=== PATIENT | female | born 1965 | race Caucasian/White ===

== ENCOUNTER 2017-03-16 09:00 | Emergency (ER) | payer OTHER ==
--- NOTE | ~2017-03-16 | CR58 ---
[facility] A Service of [facility] RADIOLOGY TEXT RESULTS PATIENT: KELLEY MERLOS LOCATION: SED : 65 UNIT #: [id number] AGE: [address]: Jeevan Larry DO SEX: F ORDER DR: [id number] [place] [id number] E MR#: [id number] Acc #: [id number] NAME: KELLEY MERLOS : 1965 SEX: F STUDY DATE/TIME: 03/16/2017 9:31 UNIT: SED ROOM: STUDY DESCRIPTION: CR Cervical Spine 2 or 3 Views Attending Physician: Jeevan Larry Ordering Physician: Jeevan Larry Primary Care Physician: Carlos Kang M.D. MEDICAL IMAGING REPORT This report is preliminary unless electronic signature is present. EXAM Cervical spine 3 views INDICATION Fall yesterday and neck pain. There are no comparison studies available. FINDINGS There is multilevel degenerative disc space narrowing within the mid cervical spine. There is degenerative appearing grade 1 retrolisthesis of C5 on C6. No prevertebral soft tissue swelling. Multilevel facet hypertrophy. Odontoid intact and the lateral masses are well aligned. IMPRESSION Degenerative changes as described. Dictated by... Raimundo Cox M.D. THIS IS AN ELECTRONICALLY VERIFIED REPORT Raimundo Cox M.D. at 03/17/2017 2:19 PM SCAR/osmani TD: 03/16/2017 23:19 JOB #: [id number] [facility] A Service of [facility] RADIOLOGY TEXT RESULTS PATIENT: KELLEY MERLOS LOCATION: SED : 65 UNIT #: [id number] AGE: [address]: Jeevan Larry DO SEX: F ORDER DR: MEDICAL IMAGING REPORT Page 1 of 1
--- NOTE | ~2017-03-16 | CR219 ---
[facility] A Service of [facility] RADIOLOGY TEXT RESULTS PATIENT: KELLEY MERLOS LOCATION: SED : 65 UNIT #: [id number] AGE: [address]: Jeevan Larry DO SEX: F ORDER DR: [id number] [address] [address] [id number] E MR#: [id number] Acc #: [id number] NAME: KELLEY MERLOS : 1965 SEX: F STUDY DATE/TIME: 03/16/2017 9:31 UNIT: SED ROOM: STUDY DESCRIPTION: CR Sacrum and Coccyx Min 2 Vie Attending Physician: Jeevan Larry Ordering Physician: Jeevan Larry Primary Care Physician: Carlos Kang M.D. MEDICAL IMAGING REPORT This report is preliminary unless electronic signature is present. EXAM Sacrum and coccyx 3 views INDICATIONS Tailbone pain after falling. No comparisons. FINDINGS No evidence for a displaced fracture. There are degenerative changes at the L5-S1 disc space. IMPRESSION No evidence for a displaced fracture. Dictated by... Raimundo Cox M.D. THIS IS AN ELECTRONICALLY VERIFIED REPORT Raimundo Cox M.D. at 03/17/2017 2:19 PM SCAR/leonor TD: 03/16/2017 23:14 JOB #: [id number] MEDICAL IMAGING REPORT Page 1 of 1
[~2017-03-16 09:00] MED LIST: ANTIVERT12.5 MG PO; CALCIUM1 TAB.CHEW; CIPRO PO; COLACE PO; DOXYCYCLINE HY100 M1 PO; FLEXERIL PO; LACTULOSE PO; MIRALAX17 GM; MIRALAX17 GM PO; MOBIC PO; MULTI VITAMIN1 EACH; NAPROSYN500 MG PO; NICOTINE1 PATCH .2 TD; NO MEDICATIONS; PHENERGAN25 M1 PO; SENNA; SENNA LAXATIVE1 TAB PO; TRAZODONE; TRAZODONE HCL100 MG PO; VIBRAMYCIN100 M1 PO; WELLBUTRIN PO; ZITHROMAX PO; ZITHROMAX1 G/PKT PO; ZOFRAN PO; ZOLOFT; ZOLOFT50 MG PO
[2017-03-16] MEDS ORDERED: MOBIC (09:15)
[2017-03-16] MEDS ORDERED: COLACE50 MG/5 M1 (09:16)
[2017-03-16] MEDS ORDERED: REQUIP0.25 MG (09:16)
== END 2017-03-16 10:00 | disposition home or self-care (01) ==
LOC: SED 09:00
DX: S13.4XXA Sprain of ligaments of cervical spine, initial encounter (principal); S30.0XXA Contusion of lower back and pelvis, initial encounter; W19.XXXA Unspecified fall, initial encounter; Y92.009 Unspecified place in unspecified non-institutional (private) residence as the place of occurrence of the external cause
CPT/HCPCS: 72040; 72220; 99284

== ENCOUNTER 2017-07-08 21:43 | Emergency (ER) | payer OTHER ==
[~2017-07-08] VITALS: Ht 160 cm; Wt 80.7 kg
[~2017-07-08 21:43] MED LIST changes: +COLACE50 MG/5 M1; +MOBIC; +REQUIP0.25 MG
== END 2017-07-09 00:36 | disposition home or self-care (01) ==
LOC: SED 21:43
DX: T63.301A Toxic effect of unspecified spider venom, accidental (unintentional), initial encounter (principal); F32.9 Major depressive disorder, single episode, unspecified; F17.210 Nicotine dependence, cigarettes, uncomplicated; Z88.0 Allergy status to penicillin; Z88.5 Allergy status to narcotic agent
CPT/HCPCS: 99281